=== PATIENT | female | born 1975 | race Caucasian/White ===

== ENCOUNTER 2019-11-05 11:28 | Emergency (ER) | payer OTHER ==
[~2019-11-05] VITALS: Ht 172.7 cm; Wt 98.0 kg
[2019-11-05 11:34] VITALS: Ht 172.7 cm; Wt 98.0 kg
[2019-11-05 12:40] LABS: UA SPECIFIC GRAVITY >=1.030 (1.005-1.035); microscopic required? YES; urine erythrocyte TRACE (NEGATIVE)
[2019-11-05 13:28] VITALS: BP 136/76
== END 2019-11-05 14:21 | disposition home or self-care (01) ==
LOC: ED 11:28
PROVIDERS: Emergency Medicine
DX: R10.32 Left lower quadrant pain (principal); R10.31 Right lower quadrant pain; R10.2 Pelvic and perineal pain; I10 Essential (primary) hypertension
CPT/HCPCS: 87491; 87591; Q0092

== ENCOUNTER 2019-11-14 06:31 | Emergency (ER) | payer OTHER ==
[~2019-11-14] VITALS: Ht 172.7 cm; Wt 98.1 kg
[2019-11-14 06:40] VITALS: BP 140/90; Ht 172.7 cm; Wt 98.1 kg
== END 2019-11-14 08:06 | disposition home or self-care (01) ==
LOC: ED 06:31
DX: T19.2XXA Foreign body in vulva and vagina, initial encounter (principal); I10 Essential (primary) hypertension; X58.XXXA Exposure to other specified factors, initial encounter; Y93.89 Activity, other specified; Y92.89 Other specified places as the place of occurrence of the external cause; Y99.8 Other external cause status